=== PATIENT | male | born 1940 | race Caucasian/White ===

== ENCOUNTER 2019-06-01 11:32 | Inpatient (IN) ==
[2019-06-01] MEDS ORDERED: Acetaminophen 325 MG TABLET PO PRN (14:02)
[2019-06-01] MEDS ORDERED: Ondansetron 4 MG/2 ML VIAL IVP PRN (14:02)
[2019-06-01] MEDS ORDERED: Naloxone 0.4 MG/ML INJ IVP PRN (14:43)
[2019-06-01 14:58] LABS: Immature Granulocytes % 0.3 % (0-4)
[2019-06-01 14:59] LABS: Basophils # 0.1 K/mcL (0.0-0.2); Basophils % 1.3 %; Eosinophils # 0.3 K/mcL (0.0-0.6); Eosinophils % 4.4 %; Hematocrit 18.6 % (37.5-50.1); Lymphocytes % 15.2 %; Mean Corpuscular HGB Conc 31.2 g/dL (31.6-35.5); Mean Corpuscular Hemoglobin 26.6 pg (28.0-33.3); Mean Corpuscular Volume 85.3 fL (83.0-100.0); Mean Platelet Volume 10.8 fL (9.4-12.4); Monocytes # 0.9 K/mcL (0.0-1.3); Monocytes % 13.6 %; Neutrophils # 4.2 K/mcL (1.6-8.9); Platelet Count 346 K/mcL (140-400); Red Blood Count 2.18 M/mcL (4.19-5.50); Red Cell Distribution Width 16.3 % (11.5-14.5); Segmented Neutrophils % 65.2 %; White Blood Count 6.4 K/mcL (4.3-11.1)
[2019-06-01 15:02] LABS: Hemoglobin 5.8 g/dL (12.9-16.9)
[2019-06-01 15:25] LABS: Anisocytosis 1+ (Not Present); Hypochromasia Present (Not Present); Poikilocytosis 2+ (Not Present); Polychromasia 1+ (Not Present)
[2019-06-01 15:26] LABS: Platelet Estimate Normal (Normal)
[2019-06-01 15:46] LABS: Potassium 4.2 mEq/L (3.5-5.1)
[2019-06-01] MEDS ORDERED: Dextrose Gel 15 GM/37.5 ML TUBE PO PRN ×2 (16:18)
[2019-06-01] MEDS ORDERED: *HR* Dextrose 50 % in Water (Syg) 50 ML SYRINGE IVP PRN (16:18)
[2019-06-01] MEDS ORDERED: D5% in Water 1,000 ML IVC PRN (16:18)
[2019-06-01] MEDS ORDERED: *HR* Midazolam HCl 5 MG/5 ML VIAL IVP ONE ×2 (16:20→16:23)
[2019-06-01] MEDS ORDERED: *HR* FentaNYL (PF) 100 MCG/2 ML VIAL IVP ONE (16:20)
[2019-06-01] MEDS ORDERED: Simethicone 40 MG/0.6 ML MLS IR ONE (16:20)
[2019-06-01] MEDS ORDERED: *HR* FentaNYL (PF) 100 MCG/2 ML VIAL ONE (16:23)
[2019-06-01 17:34] LABS: Hematocrit 17.2 % (37.5-50.1)
[2019-06-01 17:39] LABS: Hemoglobin 5.3 g/dL (12.9-16.9)
[2019-06-01] MEDS: Insulin LISPRO 300 UNITS/3 ML VIAL SQ SCH (18:10)
[2019-06-01] MEDS: Pantoprazole 40 MG VIAL IVP SCH (18:13)
[2019-06-01] MEDS ORDERED: 0.9 % Sodium Chloride 250 ML ONE (18:19)
[2019-06-01] MEDS ORDERED: SODIUM CHLORIDE/NAHCO3/KCL/PEG 4,000 ML SOLN.RECON PO ONE (18:19)
[2019-06-01] MEDS: Furosemide 20 MG/2 ML VIAL IVP PRN (21:24)
[2019-06-02] MEDS: Furosemide 20 MG/2 ML VIAL IVP PRN (01:10)
[2019-06-02] MEDS: Insulin LISPRO 300 UNITS/3 ML VIAL SQ SCH ×4 (01:30→16:47)
[2019-06-02 02:40] LABS: Basophils # 0.1 K/mcL (0.0-0.2); Basophils % 0.9 %; Eosinophils # 0.4 K/mcL (0.0-0.6); Eosinophils % 5.6 %; Hematocrit 21.4 % (37.5-50.1); Hemoglobin 6.6 g/dL (12.9-16.9); Immature Granulocytes % 0.3 % (0-4); Lymphocytes # 0.8 K/mcL (0.6-4.6); Lymphocytes % 12.1 %; Mean Corpuscular HGB Conc 30.8 g/dL (31.6-35.5); Mean Corpuscular Hemoglobin 26.7 pg (28.0-33.3); Mean Corpuscular Volume 86.6 fL (83.0-100.0); Mean Platelet Volume 10.8 fL (9.4-12.4); Monocytes % 15.4 %; Neutrophils # 4.4 K/mcL (1.6-8.9); Platelet Count 314 K/mcL (140-400); Red Blood Count 2.47 M/mcL (4.19-5.50); Red Cell Distribution Width 15.9 % (11.5-14.5); Segmented Neutrophils % 65.7 %; White Blood Count 6.6 K/mcL (4.3-11.1)
[2019-06-02 02:47] LABS: INR 1.3; Prothrombin Time 14.7 Seconds (9.4-12.1)
[2019-06-02 03:02] LABS: Calcium 8.9 mg/dL (8.6-10.3); Magnesium 2.4 mg/dL (1.6-2.6); Phosphorous 4.3 mg/dL (2.7-4.5)
[2019-06-02 04:43] LABS: Hematocrit 23.4 % (37.5-50.1); Hemoglobin 7.3 g/dL (12.9-16.9)
[2019-06-02] MEDS: Pantoprazole 40 MG VIAL IVP SCH ×2 (06:04→16:47)
[2019-06-02] MEDS ORDERED: *HR* FentaNYL (PF) 100 MCG/2 ML VIAL ONE (07:20)
[2019-06-02] MEDS ORDERED: *HR* Midazolam HCl 5 MG/5 ML VIAL IVP ONE ×2 (07:21→07:34)
[2019-06-02] MEDS ORDERED: Simethicone 40 MG/0.6 ML MLS IR ONE (07:34)
[2019-06-02] MEDS ORDERED: *HR* FentaNYL (PF) 100 MCG/2 ML VIAL IVP ONE (07:34)
[2019-06-02] MEDS ORDERED: Furosemide 40 MG/4 ML VIAL IVP PRN (07:44)
[2019-06-02] MEDS: Furosemide 40 MG TABLET PO SCH (09:36)
[2019-06-02] MEDS: amLODIPine 5 MG TABLET PO SCH (09:36)
[2019-06-02] MEDS: cilostazoL 100 MG TABLET PO SCH ×2 (09:36→19:51)
[2019-06-02] MEDS: carvediloL 6.25 MG TABLET PO SCH ×2 (09:36→19:52)
[2019-06-02] MEDS: allopurinoL 100 MG TABLET PO SCH (09:36)
[2019-06-02] MEDS ORDERED: 0.9 % Sodium Chloride 250 ML ONE (10:02)
[2019-06-02 17:22] LABS: Hematocrit 27.1 % (37.5-50.1); Hemoglobin 8.6 g/dL (12.9-16.9)
[2019-06-02] MEDS ORDERED: traZODone 50 MG TABLET PO SCH (21:00)
[2019-06-02] MEDS ORDERED: Insulin LISPRO 300 UNITS/3 ML VIAL SQ SCH (21:00)
[2019-06-03 04:36] LABS: Hematocrit 23.7 % (37.5-50.1); Hemoglobin 7.5 g/dL (12.9-16.9); Mean Corpuscular HGB Conc 31.6 g/dL (31.6-35.5); Mean Corpuscular Hemoglobin 27.5 pg (28.0-33.3); Mean Corpuscular Volume 86.8 fL (83.0-100.0); Mean Platelet Volume 10.2 fL (9.4-12.4); Platelet Count 314 K/mcL (140-400); Red Blood Count 2.73 M/mcL (4.19-5.50); Red Cell Distribution Width 16.2 % (11.5-14.5)
[2019-06-03 04:56] LABS: Calcium 8.7 mg/dL (8.6-10.3); Magnesium 2.1 mg/dL (1.6-2.6); Potassium 4.2 mEq/L (3.5-5.1)
[2019-06-03] MEDS: Pantoprazole 40 MG VIAL IVP SCH (06:11)
[2019-06-03 07:27] VITALS: BP 173/62
[2019-06-03] MEDS ORDERED: Insulin LISPRO 300 UNITS/3 ML VIAL SQ SCH (07:30)
[2019-06-03 08:44] LABS: Hematocrit 26.4 % (37.5-50.1); Hemoglobin 8.2 g/dL (12.9-16.9)
[2019-06-03] MEDS: amLODIPine 5 MG TABLET PO SCH (09:46)
[2019-06-03] MEDS: cilostazoL 100 MG TABLET PO SCH (09:46)
[2019-06-03] MEDS: allopurinoL 100 MG TABLET PO SCH (09:47)
[2019-06-03] MEDS: Furosemide 40 MG TABLET PO SCH (09:47)
[2019-06-03] MEDS: carvediloL 6.25 MG TABLET PO SCH (09:47)
== END 2019-06-03 11:08 | disposition home or self-care (01) ==
LOC: 2ANU → SUATTDRO 13:11 → 2ANU 13:12
PROVIDERS: ADMIT Internal Medicine; ATTEND Internal Medicine

== ENCOUNTER 2019-08-29 17:18 | Inpatient (IN) ==
[2019-08-29] MEDS ORDERED: Piperacillin/Tazobactam 3.375 GM in Water for inj. (sterile) 20 ML IVP ONE (17:54)
[2019-08-29] MEDS ORDERED: Isovue-370 500 ML BOTTLE IVP ONE (18:01)
[2019-08-29] MEDS ORDERED: Ondansetron 4 MG/2 ML VIAL IVP ONE (18:09)
[2019-08-29] MEDS: 0.9 % Sodium Chloride 1,000 ML IVC SCH ×3 (18:25→21:08)
[2019-08-29 18:50] LABS: INR 1.4; Prothrombin Time 15.5 Seconds (9.4-12.1)
[2019-08-29 18:53] LABS: Activated Partial Thrombo Time 32.7 Seconds (26.0-36.0)
[2019-08-29 19:03] LABS: Basophils % 0.3 %; Eosinophils % 0.1 %; Lymphocytes % 3.3 %
[2019-08-29 19:05] LABS: Basophils # 0.1 K/mcL (0.0-0.2); Hematocrit 37.6 % (37.5-50.1); Hemoglobin 12.3 g/dL (12.9-16.9); Immature Granulocytes % 0.5 % (0-4); Immature Platelets 6.4 % (1.1-6.1); Lymphocytes # 0.5 K/mcL (0.6-4.6); Mean Corpuscular HGB Conc 32.7 g/dL (31.6-35.5); Mean Corpuscular Hemoglobin 27.8 pg (28.0-33.3); Mean Corpuscular Volume 85.1 fL (83.0-100.0); Mean Platelet Volume 11.4 fL (9.4-12.4); Monocytes % 12.9 %; Neutrophils # 12.7 K/mcL (1.6-8.9); Platelet Count 199 K/mcL (140-400); Red Blood Count 4.42 M/mcL (4.19-5.50); Red Cell Distribution Width 19.1 % (11.5-14.5); Segmented Neutrophils % 82.9 %; White Blood Count 15.3 K/mcL (4.3-11.1)
[2019-08-29 19:16] LABS: Albumin 3.7 g/dL (3.5-5.7); Albumin/Globulin Ratio 1.4 (1.1-2.2); Bilirubin,Direct 0.2 mg/dL (0.0-0.2); Bilirubin,Indirect 0.8 mg/dL (0.0-1.0); Calcium 8.3 mg/dL (8.6-10.3); Globulin 2.7 g/dL (2.4-3.5); Magnesium 1.8 mg/dL (1.6-2.6); Phosphorous 2.8 mg/dL (2.7-4.5); Potassium 4.5 mEq/L (3.5-5.1); Total Protein 6.4 g/dL (6.4-8.9); Troponin I 0.04 ng/mL (< 0.04)
[2019-08-29] MEDS ORDERED: Aspirin 81 MG TAB.CHEW PO STA (19:18)
[2019-08-29 19:22] LABS: Large Platelets Present (Not Present); Platelet Estimate Normal (Normal)
[2019-08-29 19:23] LABS: Bilirubin,Urine Negative (Negative); Blood,Urine Moderate (Negative); Clarity,Urine Clear (Clear); Color,Urine Yellow (Yellow); Glucose,Urine (UA) >=1000 mg/dL (Normal); Ketones,Urine Negative (Negative); Leukocyte Esterase,Urine Negative (Negative); Nitrite,Urine Negative (Negative); PH,Urine 5.5 pH Units (5.0-8.0); Protein,Urine 100 mg/dL (Neg-Trace); Urobilinogen,Urine Normal (Normal)
[2019-08-29 19:24] LABS: Bacteria,Urine None Seen per hpf (None-Few); Hyaline Casts,Urine Few per lpf (None-Few); Squamous Epithelial Cell,Urine Many per lpf (None-Few)
[2019-08-29] MEDS ORDERED: Insulin Human Regular 10 UNIT in 0.9 % Sodium Chloride 10 ML IV STA (21:53)
[2019-08-29] MEDS ORDERED: Doxycycline 100 MG in 0.9 % Sodium Chloride Mini Bag 100 ML IVPB ONE (22:00)
[2019-08-29] MEDS ORDERED: Naloxone 0.4 MG/ML INJ IVP PRN (22:44)
[2019-08-29] MEDS ORDERED: Ondansetron 4 MG/2 ML VIAL IVP PRN (22:45)
[2019-08-29] MEDS ORDERED: D5% in Water 1,000 ML IVC PRN (22:59)
[2019-08-29] MEDS ORDERED: Dextrose Gel 15 GM/37.5 ML TUBE PO PRN ×2 (22:59)
[2019-08-29] MEDS ORDERED: *HR* Dextrose 50 % in Water (Syg) 50 ML SYRINGE IVP PRN (22:59)
[2019-08-29] MEDS: Insulin DETEMIR 100 UNIT/ML X5UNITS SQ SCH (23:39)
[2019-08-29] MEDS: Insulin LISPRO 300 UNITS/3 ML VIAL SQ SCH (23:40)
[2019-08-29] MEDS: Azithromycin 500 MG in 0.9 % Sodium Chloride 250 ML IVPB SCH (23:43)
[2019-08-29] MEDS: traZODone 50 MG TABLET PO SCH (23:44)
[2019-08-29] MEDS ORDERED: 0.9 % Sodium Chloride 1,000 ML IVC SCH (23:45)
[2019-08-30 00:25] LABS: Basophils % 0.2 %; Hemoglobin 11.9 g/dL (12.9-16.9)
[2019-08-30 00:26] LABS: Eosinophils % 0.1 %; Hematocrit 36.6 % (37.5-50.1); Immature Granulocytes % 0.4 % (0-4); Immature Platelets 5.4 % (1.1-6.1); Lymphocytes # 0.6 K/mcL (0.6-4.6); Lymphocytes % 4.5 %; Mean Corpuscular HGB Conc 32.5 g/dL (31.6-35.5); Mean Corpuscular Hemoglobin 28.2 pg (28.0-33.3); Mean Corpuscular Volume 86.7 fL (83.0-100.0); Monocytes % 8.5 %; Neutrophils # 10.5 K/mcL (1.6-8.9); Platelet Count 183 K/mcL (140-400); Red Blood Count 4.22 M/mcL (4.19-5.50); Red Cell Distribution Width 19.2 % (11.5-14.5); Segmented Neutrophils % 86.3 %; White Blood Count 12.2 K/mcL (4.3-11.1)
[2019-08-30] MEDS: Insulin LISPRO 300 UNITS/3 ML VIAL SQ SCH ×8 (00:26→22:17)
[2019-08-30 00:38] LABS: Calcium 7.9 mg/dL (8.6-10.3); Potassium 3.9 mEq/L (3.5-5.1)
[2019-08-30 00:49] LABS: Anisocytosis 1+ (Not Present); Microcytosis Present (Not Present); Platelet Estimate Normal (Normal)
[2019-08-30 03:48] LABS: Troponin I 0.06 ng/mL (< 0.04)
[2019-08-30 04:00] LABS: Albumin 3.3 g/dL (3.5-5.7); Albumin/Globulin Ratio 1.3 (1.1-2.2); Bilirubin,Total 0.8 mg/dL (0.3-1.0); Calcium 7.8 mg/dL (8.6-10.3); Globulin 2.5 g/dL (2.4-3.5); Potassium 3.8 mEq/L (3.5-5.1); Total Protein 5.8 g/dL (6.4-8.9)
[2019-08-30] MEDS ORDERED: *HR* Heparin 5,000 UNIT/ML VIAL IVP PRN ×2 (05:43)
[2019-08-30] MEDS ORDERED: *HR* Heparin 5,000 UNIT/ML VIAL IVP ONE (05:43)
[2019-08-30] MEDS ORDERED: Heparin 25,000 UNIT/250 ML D5W 25,000 UNIT/250 ML IV.SOLN IVC SCH (05:45)
[2019-08-30] MEDS: Piperacillin/Tazobactam 3.375 GM in 0.9 % Sodium Chloride Mini Bag 100 ML IVPB SCH ×2 (08:47→22:15)
[2019-08-30] MEDS: cilostazoL 100 MG TABLET PO SCH ×2 (08:49→22:15)
[2019-08-30] MEDS: carvediloL 6.25 MG TABLET PO SCH ×2 (08:49→16:55)
[2019-08-30] MEDS: Cholecalciferol (D-3) 1,000 UNIT (25MCG) TABLET PO SCH (08:49)
[2019-08-30] MEDS: allopurinoL 100 MG TABLET PO SCH (08:49)
[2019-08-30] MEDS ORDERED: cefTRIAXone 1,000 MG in Water for inj. (sterile) 10 ML IVP SCH (09:00)
[2019-08-30] MEDS: amLODIPine 5 MG TABLET PO SCH (13:07)
[2019-08-30] MEDS: *HR* Heparin 5,000 UNIT/ML VIAL SQ SCH ×2 (13:08→22:18)
[2019-08-30] MEDS: Insulin DETEMIR 100 UNIT/ML X5UNITS SQ SCH (22:18)
[2019-08-30] MEDS: traZODone 50 MG TABLET PO SCH (22:18)
[2019-08-30] MEDS: Azithromycin 500 MG in 0.9 % Sodium Chloride 250 ML IVPB SCH (22:19)
[2019-08-31] MEDS: *HR* Heparin 5,000 UNIT/ML VIAL SQ SCH ×3 (05:52→21:16)
[2019-08-31 06:35] LABS: Red Blood Count 3.78 M/mcL (4.19-5.50)
[2019-08-31 06:36] LABS: Mean Platelet Volume 11.6 fL (9.4-12.4); Red Cell Distribution Width 19.8 % (11.5-14.5)
[2019-08-31 06:37] LABS: Hemoglobin 10.4 g/dL (12.9-16.9); Mean Corpuscular HGB Conc 31.5 g/dL (31.6-35.5); Mean Corpuscular Hemoglobin 27.5 pg (28.0-33.3); Mean Corpuscular Volume 87.3 fL (83.0-100.0); White Blood Count 12.6 K/mcL (4.3-11.1)
[2019-08-31 06:55] LABS: Calcium 7.9 mg/dL (8.6-10.3); Potassium 3.9 mEq/L (3.5-5.1)
[2019-08-31] MEDS: Insulin LISPRO 300 UNITS/3 ML VIAL SQ SCH ×4 (08:00→21:18)
[2019-08-31] MEDS: allopurinoL 100 MG TABLET PO SCH (09:39)
[2019-08-31] MEDS: cefTRIAXone 2,000 MG in Water for inj. (sterile) 20 ML IVP SCH (09:39)
[2019-08-31] MEDS: amLODIPine 5 MG TABLET PO SCH (09:39)
[2019-08-31] MEDS: cilostazoL 100 MG TABLET PO SCH ×2 (09:39→21:17)
[2019-08-31] MEDS: Cholecalciferol (D-3) 1,000 UNIT (25MCG) TABLET PO SCH (09:39)
[2019-08-31] MEDS: carvediloL 6.25 MG TABLET PO SCH ×2 (09:39→17:01)
[2019-08-31] MEDS ORDERED: Insulin DETEMIR 100 UNIT/ML X5UNITS SQ SCH (21:00)
[2019-08-31] MEDS: traZODone 50 MG TABLET PO SCH (21:17)
[2019-08-31] MEDS: Azithromycin 500 MG in 0.9 % Sodium Chloride 250 ML IVPB SCH (22:53)
[2019-09-01 05:28] LABS: Hemoglobin 9.8 g/dL (12.9-16.9); Immature Platelets 5.4 % (1.1-6.1); Mean Corpuscular HGB Conc 32.7 g/dL (31.6-35.5); Mean Corpuscular Hemoglobin 27.8 pg (28.0-33.3); Mean Corpuscular Volume 85.2 fL (83.0-100.0); Red Blood Count 3.52 M/mcL (4.19-5.50); Red Cell Distribution Width 19.5 % (11.5-14.5); White Blood Count 8.5 K/mcL (4.3-11.1)
[2019-09-01 05:42] LABS: Calcium 8.1 mg/dL (8.6-10.3)
[2019-09-01] MEDS: *HR* Heparin 5,000 UNIT/ML VIAL SQ SCH (05:56)
[2019-09-01] MEDS: Insulin LISPRO 300 UNITS/3 ML VIAL SQ SCH ×2 (08:19→12:19)
[2019-09-01] MEDS: cefTRIAXone 2,000 MG in Water for inj. (sterile) 20 ML IVP SCH (08:20)
[2019-09-01] MEDS: Cholecalciferol (D-3) 1,000 UNIT (25MCG) TABLET PO SCH (08:21)
[2019-09-01] MEDS: amLODIPine 5 MG TABLET PO SCH (08:21)
[2019-09-01] MEDS: allopurinoL 100 MG TABLET PO SCH (08:21)
[2019-09-01] MEDS: cilostazoL 100 MG TABLET PO SCH (08:21)
[2019-09-01] MEDS: carvediloL 6.25 MG TABLET PO SCH (08:21)
[2019-09-01] MEDS ORDERED: 0.9 % Sodium Chloride 500 ML IVC ONE (08:49)
[2019-09-01 12:08] VITALS: BP 168/72
[2019-09-01 13:12] LABS: Calcium 8.3 mg/dL (8.6-10.3)
== END 2019-09-01 14:36 | disposition home or self-care (01) | DRG 871 ==
LOC: 2NENU 17:18 → EMEROOARM 17:18 → 2NENU 22:58 → 2ANU 08-31 18:58
PROVIDERS: ADMIT Student in an Organized Health Care Education/Training Program; ATTEND Student in an Organized Health Care Education/Training Program

== ENCOUNTER 2021-05-05 15:00 | Inpatient (IN) ==
[2021-05-05 18:54] LABS: Basophils % 0.2 %; Eosinophils # 0.3 K/mcL (0.0-0.6); Eosinophils % 2.4 %; Hematocrit 29.1 % (37.5-50.1); Hemoglobin 9.7 g/dL (12.9-16.9); Immature Granulocytes % 0.4 % (0-4); Lymphocytes # 0.9 K/mcL (0.6-4.6); Lymphocytes % 7.7 %; Mean Corpuscular HGB Conc 33.3 g/dL (31.6-35.5); Mean Corpuscular Hemoglobin 31.7 pg (28.0-33.3); Mean Corpuscular Volume 95.1 fL (83.0-100.0); Mean Platelet Volume 12.1 fL (9.4-12.4); Monocytes # 1.3 K/mcL (0.0-1.3); Monocytes % 11.6 %; Neutrophils # 8.5 K/mcL (1.6-8.9); Platelet Count 214 K/mcL (140-400); Red Blood Count 3.06 M/mcL (4.19-5.50); Red Cell Distribution Width 20.2 % (11.5-14.5); Segmented Neutrophils % 77.7 %
[2021-05-05 19:19] LABS: Albumin 3.1 g/dL (3.5-5.7); Albumin/Globulin Ratio 1.4 (1.1-2.2); Bilirubin,Total 0.6 mg/dL (0.3-1.0); Calcium 8.6 mg/dL (8.6-10.3); Globulin 2.2 g/dL (2.4-3.5); Potassium 4.3 mEq/L (3.5-5.1); Total Protein 5.3 g/dL (6.4-8.9)
[2021-05-05] MEDS ORDERED: carvediloL 6.25 MG TABLET PO ONE (20:36)
[2021-05-05] MEDS ORDERED: Furosemide 40 MG/4 ML VIAL IVP ONE (21:10)
[2021-05-05] MEDS ORDERED: Ondansetron 4 MG/2 ML VIAL IVP PRN (21:33)
[2021-05-05] MEDS ORDERED: Naloxone 0.4 MG/ML INJ IVP PRN (21:33)
[2021-05-05] MEDS ORDERED: *HR* HYDROcodone/Acet 5/325 mg TABLET PO PRN (21:33)
[2021-05-05] MEDS ORDERED: Melatonin 3 MG TABLET PO PRN (21:33)
[2021-05-05] MEDS ORDERED: Acetaminophen 325 MG TABLET PO PRN (21:33)
[2021-05-05] MEDS ORDERED: *HR* Labetalol 20 MG/4 ML SYRINGE IVP ONE (21:41)
[2021-05-05] MEDS ORDERED: Dextrose Gel 15 GM/37.5 ML TUBE PO PRN ×2 (21:43)
[2021-05-05] MEDS ORDERED: D5% in Water 1,000 ML IVC PRN (21:43)
[2021-05-05] MEDS ORDERED: *HR* Dextrose 50 % in Water (Syg) 50 ML SYRINGE IVP PRN (21:43)
[2021-05-05] MEDS: *HR* Heparin 5,000 UNIT/ML VIAL SQ SCH (23:36)
[2021-05-06] MEDS: *HR* Heparin 5,000 UNIT/ML VIAL SQ SCH ×2 (05:13→15:31)
[2021-05-06] MEDS ORDERED: Perflutren Lipid Microsphere 1.3 ML in 0.9 % Sodium Chloride 8.7 ML IVP PRN (07:39)
[2021-05-06 08:06] LABS: Basophils % 0.2 %; Eosinophils # 0.3 K/mcL (0.0-0.6); Eosinophils % 3.4 %; Hematocrit 30.2 % (37.5-50.1); Hemoglobin 9.8 g/dL (12.9-16.9); Immature Granulocytes % 0.2 % (0-4); Lymphocytes # 0.7 K/mcL (0.6-4.6); Lymphocytes % 8.2 %; Mean Corpuscular HGB Conc 32.5 g/dL (31.6-35.5); Mean Corpuscular Volume 95.6 fL (83.0-100.0); Mean Platelet Volume 12.3 fL (9.4-12.4); Monocytes # 0.9 K/mcL (0.0-1.3); Monocytes % 11.2 %; Neutrophils # 6.4 K/mcL (1.6-8.9); Platelet Count 207 K/mcL (140-400); Red Blood Count 3.16 M/mcL (4.19-5.50); Red Cell Distribution Width 20.1 % (11.5-14.5); Segmented Neutrophils % 76.8 %; White Blood Count 8.3 K/mcL (4.3-11.1)
[2021-05-06 08:16] LABS: INR 1.3; Prothrombin Time 14.2 Seconds (9.4-12.1)
[2021-05-06 08:24] LABS: Calcium 8.6 mg/dL (8.6-10.3); Magnesium 1.6 mg/dL (1.6-2.6); Potassium 4.2 mEq/L (3.5-5.1)
[2021-05-06] MEDS: Furosemide 40 MG/4 ML VIAL IVP SCH ×2 (09:17→20:04)
[2021-05-06] MEDS: Insulin LISPRO 300 UNITS/3 ML VIAL SUBQ SCH ×3 (09:17→17:31)
[2021-05-06 09:51] LABS: Bilirubin,Urine Negative (Negative); Blood,Urine Small (Negative); Clarity,Urine Clear (Clear); Color,Urine Colorless (Yellow); Glucose,Urine (UA) 50 mg/dL (Normal); Ketones,Urine Negative (Negative); Leukocyte Esterase,Urine Trace (Negative); Nitrite,Urine Negative (Negative); Protein,Urine 70 mg/dL (Neg-Trace); RBC,Urine 0-3 per hpf (0-3); Specific Gravity,Urine 1.009 (1.010-1.025); Urobilinogen,Urine Normal (Normal); WBC,Urine 15-30 per hpf (0-3)
[2021-05-06 10:00] LABS: Protein/Creatinine Ratio,Urine 3.79 mg/mg (0.00-0.20); Sodium, Urine 119.2 mEq/L
[2021-05-06] MEDS: carvediloL 6.25 MG TABLET PO SCH ×2 (12:32→15:31)
[2021-05-06 13:04] LABS: Uric Acid 8.7 mg/dL (2.3-7.6)
[2021-05-06 16:23] LABS: Hepatitis C Virus Antibody Nonreactive (Nonreactive)
[2021-05-06 16:27] LABS: Hepatitis B Core IgM Nonreactive (Nonreactive)
[2021-05-06 16:35] LABS: Hepatitis A Antibody IgM Nonreactive (Nonreactive)
[2021-05-06] MEDS: Albumin 25% 25gram/100mL 25 GM/100 ML IV.SOLN IVPB SCH (20:03)
[2021-05-06] MEDS ORDERED: Insulin DETEMIR 100 UNIT/ML X5UNITS SUBQ SCH (21:00)
[2021-05-07] MEDS: *HR* Heparin 5,000 UNIT/ML VIAL SQ SCH ×4 (00:34→20:57)
[2021-05-07] MEDS: Insulin LISPRO 300 UNITS/3 ML VIAL SUBQ SCH ×5 (00:38→21:10)
[2021-05-07 05:35] LABS: Calcium 8.9 mg/dL (8.6-10.3); Potassium 3.9 mEq/L (3.5-5.1)
[2021-05-07] MEDS: Albumin 25% 25gram/100mL 25 GM/100 ML IV.SOLN IVPB SCH (09:10)
[2021-05-07] MEDS: carvediloL 6.25 MG TABLET PO SCH ×2 (09:10→17:20)
[2021-05-07] MEDS: Furosemide 40 MG/4 ML VIAL IVP SCH (11:25)
[2021-05-07 17:13] LABS: Hepatitis B Surface Antigen Nonreactive (Nonreactive)
[2021-05-07] MEDS: Furosemide 40 MG TABLET PO SCH (17:20)
[2021-05-07] MEDS: cilostazoL 100 MG TABLET PO SCH (20:57)
[2021-05-07] MEDS ORDERED: traZODone 50 MG TABLET PO SCH (21:00)
[2021-05-07] MEDS ORDERED: Insulin DETEMIR 100 UNIT/ML X5UNITS SUBQ SCH (21:00)
[2021-05-08 03:01] LABS: Calcium 8.4 mg/dL (8.6-10.3); Potassium 3.7 mEq/L (3.5-5.1)
[2021-05-08] MEDS: *HR* Heparin 5,000 UNIT/ML VIAL SQ SCH (05:40)
[2021-05-08 07:40] VITALS: BP 174/53; PULSE 58; TEMP 98; O2SAT 92
[2021-05-08] MEDS: Insulin LISPRO 300 UNITS/3 ML VIAL SUBQ SCH (07:56)
[2021-05-08] MEDS: carvediloL 6.25 MG TABLET PO SCH (08:02)
[2021-05-08] MEDS: cilostazoL 100 MG TABLET PO SCH (08:02)
[2021-05-08] MEDS: Furosemide 40 MG TABLET PO SCH (08:02)
[2021-05-08] MEDS ORDERED: allopurinoL 100 MG TABLET PO SCH (09:00)
[2021-05-08] MEDS ORDERED: amLODIPine 5 MG TABLET PO SCH (09:00)
== END 2021-05-08 12:45 | disposition home or self-care (01) | DRG 291 ==
LOC: EMEROOARM 15:00 → 3ANU 15:00 → SUATTDRO 21:07 → 3ANU 22:00 → SUATTDRO 05-06 12:14
PROVIDERS: ADMIT Internal Medicine; ATTEND Family Medicine

== ENCOUNTER 2021-12-29 21:58 | Inpatient (IN) ==
[2021-12-30] MEDS ORDERED: Dextrose Gel 15 GM/37.5 ML TUBE PO PRN ×2 (01:29)
[2021-12-30] MEDS ORDERED: Naloxone 0.4 MG/ML INJ IVP PRN (01:29)
[2021-12-30] MEDS ORDERED: Ondansetron 4 MG/2 ML VIAL IVP PRN (01:29)
[2021-12-30] MEDS ORDERED: *HR* Dextrose 50 % in Water (Syg) 50 ML SYRINGE IVP PRN (01:29)
[2021-12-30] MEDS ORDERED: Melatonin 3 MG TABLET PO PRN (01:29)
[2021-12-30] MEDS ORDERED: D5% in Water 1,000 ML IVC PRN (01:29)
[2021-12-30 02:34] LABS: Basophils # 0.1 K/mcL (0.0-0.2); Basophils % 0.6 %; Eosinophils # 0.4 K/mcL (0.0-0.6); Hematocrit 26.5 % (37.5-50.1); Hemoglobin 8.4 g/dL (12.9-16.9); Immature Granulocytes % 0.2 % (0-4); Lymphocytes % 11.9 %; Mean Corpuscular HGB Conc 31.7 g/dL (31.6-35.5); Mean Corpuscular Hemoglobin 30.5 pg (28.0-33.3); Mean Corpuscular Volume 96.4 fL (83.0-100.0); Mean Platelet Volume 12.6 fL (9.4-12.4); Monocytes # 1.1 K/mcL (0.0-1.3); Monocytes % 12.8 %; Platelet Count 208 K/mcL (140-400); Red Blood Count 2.75 M/mcL (4.19-5.50); Red Cell Distribution Width 13.9 % (11.5-14.5); Segmented Neutrophils % 69.5 %; White Blood Count 8.7 K/mcL (4.3-11.1)
[2021-12-30 02:40] LABS: INR 1.1; Prothrombin Time 12.5 Seconds (9.4-12.1)
[2021-12-30 02:43] LABS: Activated Partial Thrombo Time 36.3 Seconds (26.0-36.0)
[2021-12-30 02:50] LABS: Calcium 8.9 mg/dL (8.6-10.3); Chol/HDL Ratio 2.7 (0-4.9); Magnesium 2.1 mg/dL (1.6-2.6); Phosphorous 4.4 mg/dL (2.7-4.5); Potassium 5.2 mEq/L (3.5-5.1)
[2021-12-30 02:58] LABS: Estimated Average Glucose 151 mg/dl; Hemoglobin A1C 6.9 %
[2021-12-30] MEDS: *HR* Heparin 5,000 UNIT/ML VIAL SQ SCH ×2 (06:19→16:49)
[2021-12-30] MEDS ORDERED: Albumin 25% 25gram/100mL 25 GM/100 ML IV.SOLN IVPB ONE (07:00)
[2021-12-30] MEDS: Insulin LISPRO 300 UNITS/3 ML VIAL SUBQ SCH ×4 (07:55→22:46)
[2021-12-30] MEDS ORDERED: Furosemide 40 MG/4 ML VIAL IVP ONE (09:00)
[2021-12-30] MEDS: carvediloL 25 MG TABLET PO SCH (16:49)
[2021-12-30] MEDS: Acetaminophen 325 MG TABLET PO PRN ×2 (16:49→22:50)
[2021-12-30] MEDS: Gabapentin 100 MG CAPSULE PO SCH (20:33)
[2021-12-31 03:06] LABS: Basophils # 0.1 K/mcL (0.0-0.2); Basophils % 0.8 %; Eosinophils # 0.3 K/mcL (0.0-0.6); Eosinophils % 3.7 %; Hematocrit 25.6 % (37.5-50.1); Hemoglobin 8.1 g/dL (12.9-16.9); Immature Granulocytes % 0.3 % (0-4); Lymphocytes # 0.8 K/mcL (0.6-4.6); Lymphocytes % 11.5 %; Mean Corpuscular HGB Conc 31.6 g/dL (31.6-35.5); Mean Corpuscular Hemoglobin 30.2 pg (28.0-33.3); Mean Corpuscular Volume 95.5 fL (83.0-100.0); Mean Platelet Volume 12.3 fL (9.4-12.4); Monocytes # 1.1 K/mcL (0.0-1.3); Monocytes % 15.6 %; Neutrophils # 4.9 K/mcL (1.6-8.9); Platelet Count 183 K/mcL (140-400); Red Blood Count 2.68 M/mcL (4.19-5.50); Red Cell Distribution Width 13.9 % (11.5-14.5); Segmented Neutrophils % 68.1 %; White Blood Count 7.2 K/mcL (4.3-11.1)
[2021-12-31 03:33] LABS: Calcium 8.8 mg/dL (8.6-10.3); Potassium 4.7 mEq/L (3.5-5.1)
[2021-12-31] MEDS: Acetaminophen 325 MG TABLET PO PRN (04:59)
[2021-12-31] MEDS: *HR* Heparin 5,000 UNIT/ML VIAL SQ SCH ×2 (05:00→17:53)
[2021-12-31 05:25] LABS: Sodium, Urine 96.9 mEq/L
[2021-12-31] MEDS ORDERED: amLODIPine 5 MG TABLET PO SCH (09:00)
[2021-12-31] MEDS ORDERED: NON-FORMULARY MEDICATION 1 EACH EACH (Vit A/Vit C/Vit E/Zinc/Copper [Preservision Areds Ta PO SCH (09:00)
[2021-12-31] MEDS: Multivit/Ca/Min/Fe/FA 1 TAB TABLET PO SCH (09:48)
[2021-12-31] MEDS: Insulin LISPRO 300 UNITS/3 ML VIAL SUBQ SCH ×4 (09:48→21:16)
[2021-12-31] MEDS: Cholecalciferol (D-3) 1,000 UNIT (25MCG) TABLET PO SCH (09:48)
[2021-12-31] MEDS: cilostazoL 100 MG TABLET PO SCH ×2 (09:48→20:45)
[2021-12-31] MEDS: Aspirin Enteric Coated 81 MG Tablet PO SCH (09:48)
[2021-12-31] MEDS: carvediloL 25 MG TABLET PO SCH ×2 (09:52→17:53)
[2021-12-31] MEDS: VIT C PO SCH ×2 (10:25→20:44)
[2021-12-31] MEDS: ZINC PO SCH ×2 (10:25→20:44)
[2021-12-31] MEDS: COPPER PO SCH ×2 (10:25→20:44)
[2021-12-31] MEDS: VIT E PO SCH ×2 (10:25→20:44)
[2021-12-31] MEDS: VIT A PO SCH ×2 (10:25→20:44)
[2021-12-31] MEDS ORDERED: Albumin 25% 25gram/100mL 25 GM/100 ML IV.SOLN IVPB ONE (11:42)
[2021-12-31] MEDS ORDERED: Acetaminophen 325 MG TABLET PO PRN (12:16)
[2021-12-31 12:40] LABS: Bilirubin,Urine Negative (Negative); Blood,Urine Trace (Negative); Clarity,Urine Clear (Clear); Color,Urine Light-Yellow (Yellow); Glucose,Urine (UA) 500 mg/dL (Normal); Ketones,Urine Negative (Negative); Leukocyte Esterase,Urine Negative (Negative); Nitrite,Urine Negative (Negative); PH,Urine 6.5 pH Units (5.0-8.0); Protein,Urine >=300 mg/dL (Neg-Trace); Specific Gravity,Urine 1.016 (1.010-1.025); Urobilinogen,Urine Normal (Normal)
[2021-12-31] MEDS: *HR* HYDROcodone/Acet 5/325 mg TABLET PO PRN ×2 (12:41→20:44)
[2021-12-31] MEDS ORDERED: Furosemide 40 MG/4 ML VIAL IVP ONE (14:00)
[2021-12-31] MEDS ORDERED: Cyanocobalamin (B-12) 1,000 MCG/ML VIAL SQ SCH (16:33)
[2021-12-31] MEDS ORDERED: Iron Sucrose Complex 250 MG in 0.9 % Sodium Chloride 250 ML IVPB SCH (16:45)
[2021-12-31] MEDS: allopurinoL 100 MG TABLET PO SCH (20:44)
[2021-12-31] MEDS: traZODone 50 MG TABLET PO SCH (20:45)
[2021-12-31] MEDS: Gabapentin 100 MG CAPSULE PO SCH (20:45)
[2022-01-01 02:54] LABS: Basophils % 0.6 %; Eosinophils # 0.4 K/mcL (0.0-0.6); Eosinophils % 5.3 %; Hematocrit 22.9 % (37.5-50.1); Hemoglobin 7.4 g/dL (12.9-16.9); Immature Granulocytes % 0.3 % (0-4); Lymphocytes # 0.8 K/mcL (0.6-4.6); Lymphocytes % 11.5 %; Mean Corpuscular HGB Conc 32.3 g/dL (31.6-35.5); Mean Corpuscular Hemoglobin 30.5 pg (28.0-33.3); Mean Corpuscular Volume 94.2 fL (83.0-100.0); Mean Platelet Volume 12.4 fL (9.4-12.4); Monocytes # 1.1 K/mcL (0.0-1.3); Monocytes % 16.5 %; Neutrophils # 4.5 K/mcL (1.6-8.9); Platelet Count 178 K/mcL (140-400); Red Blood Count 2.43 M/mcL (4.19-5.50); Red Cell Distribution Width 13.9 % (11.5-14.5); Segmented Neutrophils % 65.8 %; White Blood Count 6.8 K/mcL (4.3-11.1)
[2022-01-01 03:05] LABS: Bilirubin,Direct 0.1 mg/dL (0.0-0.2); Bilirubin,Total 0.5 mg/dL (0.3-1.0); Calcium 8.9 mg/dL (8.6-10.3); Potassium 4.6 mEq/L (3.5-5.1)
[2022-01-01 03:06] LABS: Albumin 3.4 g/dL (3.5-5.7); Albumin/Globulin Ratio 1.7 (1.1-2.2); Bilirubin,Indirect 0.4 mg/dL (0.0-1.0); Total Protein 5.4 g/dL (6.4-8.9)
[2022-01-01 03:28] LABS: Folate > 22.3 ng/mL (3.0-16.0); Vitamin B12 > 1500 pg/mL (250-1100)
[2022-01-01] MEDS: *HR* Heparin 5,000 UNIT/ML VIAL SQ SCH ×2 (05:46→16:31)
[2022-01-01] MEDS: *HR* HYDROcodone/Acet 5/325 mg TABLET PO PRN ×3 (05:50→20:26)
[2022-01-01] MEDS ORDERED: Iron Sucrose Complex 250 MG in 0.9 % Sodium Chloride 250 ML IVPB SCH (09:00)
[2022-01-01] MEDS: cilostazoL 100 MG TABLET PO SCH ×2 (10:05→20:27)
[2022-01-01] MEDS: Cholecalciferol (D-3) 1,000 UNIT (25MCG) TABLET PO SCH (10:05)
[2022-01-01] MEDS: NIFEdipine XL (24 HR) 60 MG TAB.ER.24 PO SCH (10:05)
[2022-01-01] MEDS: carvediloL 25 MG TABLET PO SCH ×2 (10:05→16:31)
[2022-01-01] MEDS: Multivit/Ca/Min/Fe/FA 1 TAB TABLET PO SCH (10:05)
[2022-01-01] MEDS: Aspirin Enteric Coated 81 MG Tablet PO SCH (10:05)
[2022-01-01] MEDS: ZINC PO SCH ×2 (10:06→20:28)
[2022-01-01] MEDS: VIT C PO SCH ×2 (10:06→20:28)
[2022-01-01] MEDS: polyethylene glycoL 3350 17 GM POWD.PACK PO SCH (10:06)
[2022-01-01] MEDS: COPPER PO SCH ×2 (10:06→20:28)
[2022-01-01] MEDS: VIT E PO SCH ×2 (10:06→20:28)
[2022-01-01] MEDS: VIT A PO SCH ×2 (10:06→20:28)
[2022-01-01] MEDS: Insulin LISPRO 300 UNITS/3 ML VIAL SUBQ SCH ×4 (10:07→20:48)
[2022-01-01] MEDS: Furosemide 40 MG TABLET PO SCH (12:34)
[2022-01-01] MEDS: traZODone 50 MG TABLET PO SCH (20:27)
[2022-01-01] MEDS: allopurinoL 100 MG TABLET PO SCH (20:27)
[2022-01-01] MEDS: Gabapentin 100 MG CAPSULE PO SCH (20:27)
[2022-01-02 04:35] LABS: Basophils # 0.1 K/mcL (0.0-0.2); Basophils % 0.9 %; Eosinophils # 0.4 K/mcL (0.0-0.6); Eosinophils % 7.6 %; Hematocrit 21.7 % (37.5-50.1); Hemoglobin 7.2 g/dL (12.9-16.9); Immature Granulocytes % 0.2 % (0-4); Lymphocytes % 18.2 %; Mean Corpuscular HGB Conc 33.2 g/dL (31.6-35.5); Mean Corpuscular Hemoglobin 31.4 pg (28.0-33.3); Mean Corpuscular Volume 94.8 fL (83.0-100.0); Mean Platelet Volume 12.2 fL (9.4-12.4); Monocytes # 0.9 K/mcL (0.0-1.3); Monocytes % 17.1 %; Platelet Count 173 K/mcL (140-400); Red Blood Count 2.29 M/mcL (4.19-5.50); Red Cell Distribution Width 13.9 % (11.5-14.5); White Blood Count 5.4 K/mcL (4.3-11.1)
[2022-01-02 04:47] LABS: Calcium 8.7 mg/dL (8.6-10.3); Potassium 4.8 mEq/L (3.5-5.1)
[2022-01-02] MEDS: *HR* Heparin 5,000 UNIT/ML VIAL SQ SCH (05:28)
[2022-01-02] MEDS: Insulin LISPRO 300 UNITS/3 ML VIAL SUBQ SCH ×2 (07:20→12:34)
[2022-01-02] MEDS: polyethylene glycoL 3350 17 GM POWD.PACK PO SCH (07:47)
[2022-01-02] MEDS: VIT C PO SCH (07:47)
[2022-01-02] MEDS: Furosemide 40 MG TABLET PO SCH (07:47)
[2022-01-02] MEDS: COPPER PO SCH (07:47)
[2022-01-02] MEDS: NIFEdipine XL (24 HR) 60 MG TAB.ER.24 PO SCH (07:47)
[2022-01-02] MEDS: Multivit/Ca/Min/Fe/FA 1 TAB TABLET PO SCH (07:47)
[2022-01-02] MEDS: VIT E PO SCH (07:47)
[2022-01-02] MEDS: carvediloL 25 MG TABLET PO SCH (07:47)
[2022-01-02] MEDS: Cholecalciferol (D-3) 1,000 UNIT (25MCG) TABLET PO SCH (07:47)
[2022-01-02] MEDS: Aspirin Enteric Coated 81 MG Tablet PO SCH (07:47)
[2022-01-02] MEDS: VIT A PO SCH (07:47)
[2022-01-02] MEDS: ZINC PO SCH (07:47)
[2022-01-02] MEDS: cilostazoL 100 MG TABLET PO SCH (07:47)
[2022-01-02] MEDS ORDERED: 0.9 % Sodium Chloride 250 ML IVC SCH (10:15)
[2022-01-02 14:53] VITALS: BP 162/56; PULSE 70; TEMP 97.9; O2SAT 96
== END 2022-01-02 16:38 | disposition home or self-care (01) | DRG 682 ==
LOC: 2ANU → SUATTDRO 12-30 00:02
PROVIDERS: ADMIT Internal Medicine; ATTEND Pharmacist